=== PATIENT | male | born 1985 ===

== ENCOUNTER 2019-01-27 03:49 | Emergency (ER) | payer BC, OTHER ==
[2019-01-27] MEDS ORDERED: SODIUM CHLORIDE 0.9% FLUSH 10 ML SOL IV PRN (04:04)
[2019-01-27 04:17] LABS: BASOPHILS % (AUTO) 1 % (0-3); EOSINOPHILS % (AUTO) 2 % (0-9); HEMATOCRIT 42 % (39-53); HEMOGLOBIN 14.4 gm/dl (13.5-17.7); LYMPHOCYTES % (AUTO) 15.8 % (10-50); MEAN CORPUSCULAR HGB CONC 34.2 gm/dl (32.0-36.0); MEAN CORPUSCULAR VOLUME 85 fL (80-100); MONOCYTES % (AUTO) 4.6 % (0-12); NEUTROPHILS % (AUTO) 77.2 % (37-80)
[2019-01-27 04:34] LABS: BLOOD UREA NITROGEN 9 mg/dl (7-18); CALCIUM 8.7 mg/dl (8.5-10.1); CARBON DIOXIDE 26.6 mEq/L (21-32); CHLORIDE 103 mMol/L (98-107); CREATININE 1.12 mg/dl (0.80-1.30); GLUCOSE 116 mg/dl (74-106); POTASSIUM 3.3 mMol/L (3.5-5.1); SODIUM 139 mMol/L (136-145); TROP I < 0.017 ng/ml (0.000-0.056)
[2019-01-27 04:45] VITALS: RESP 16; TEMP 98.2; O2SAT 98
[2019-01-27] MEDS ORDERED: POTASSIUM CHLORIDE 10 MEQ TER PO ONE (04:49)
[2019-01-27] MEDS ORDERED: POTASSIUM CHLORIDE 10 MEQ TER ONE (04:51)
[2019-01-27 05:01] VITALS: BP 131/80; PULSE 70
== END 2019-01-27 05:10 | disposition home or self-care (01) ==
LOC: ED 03:49
DX: R07.9 Chest pain, unspecified (principal)
CPT/HCPCS: 71045; 80048; 84484; 85025; 93005; 99284; A9270-GY